=== PATIENT | male | born 1955 | race Caucasian/White ===

== ENCOUNTER 2021-08-29 11:20 | Emergency (ER) | payer MEDICARE ==
[~2021-08-29] VITALS: Ht 185.4 cm; Wt 109.1 kg
[2021-08-29 12:19] VITALS: BP 145/96
[2021-08-29] MEDS ORDERED: LIDOCAINE 5% TRANSDERMAL PATCH TD ONE (15:15)
[2021-08-29] MEDS ORDERED: DICLOFENAC SODIUM 1% 100 GM GEL [4GM] TP ONE (15:15)
[2021-08-29] MEDS ORDERED: ACETAMINOPHEN 500 MG TABLET PO ONE (15:15)
== END 2021-08-29 18:28 | disposition home or self-care (01) ==
LOC: EMS 11:20
DX: M16.12 Unilateral primary osteoarthritis, left hip (principal); M54.50 Low back pain, unspecified; M25.562 Pain in left knee; R60.0 Localized edema
CPT/HCPCS: 72100; 73503; 99284

== ENCOUNTER 2024-09-01 09:08 | Emergency (ER) | payer MEDICARE ==
[~2024-09-01] VITALS: Ht 167.6 cm; Wt 111.4 kg
[2024-09-01 09:11] VITALS: TEMP 98.6
[2024-09-01 09:23] LABS: COVID AG,FIA SOURCE NASAL SWAB
[2024-09-01 09:47] LABS: INFLUENZA TYPE A NEGATIVE FOR TYPE A (NEGATIVE); INFLUENZA TYPE B NEGATIVE FOR TYPE B (NEGATIVE); SARS-COV2 (COVID) ANTIGEN,FIA Negative (Negative)
[2024-09-01 13:10] LABS: BASOPHILS % (AUTO) 0.7 % (0.0-2.0); EOSINOPHILS % (AUTO) 2.2 % (1.0-6.0); HEMATOCRIT 41.4 % (41-53); LYMPHOCYTES # (AUTO) 1.2 K/uL (1.0-4.8); LYMPHOCYTES % (AUTO) 29.7 % (22.0-44.0); MEAN CORPUSCULAR HEMOGLOBIN 31.3 pg (26.0-34.0); MEAN CORPUSCULAR HGB CONC 33.8 G/dL (31.0-37.0); MEAN CORPUSCULAR VOLUME 93 fL (80-100); MONOCYTES # (AUTO) 0.7 K/uL (0.1-1.0); MONOCYTES % (AUTO) 16.1 % (2.0-9.0); NEUTROPHILS # (AUTO) 2.1 K/uL (1.8-7.7); NEUTROPHILS % (AUTO) 51.3 % (40.0-70.0); PLATELET COUNT (AUTO) 83 K/uL (150-450); RED BLOOD CELL COUNT(AUTO) 4.47 MIL/uL (4.50-5.90); RED CELL DISTRIBUTION WIDTH 14.4 % (11.5-14.5); WHITE BLOOD COUNT (AUTO) 4.1 K/uL (4.5-11.0)
[2024-09-01 13:24] LABS: ANION GAP 7 mmol/L (8-16); CALCIUM, TOTAL 8.3 mg/dL (8.8-10.5); CARBON DIOXIDE 28 mmol/L (22-29); CHLORIDE 100 mmol/L (98-107); CREATININE 0.94 mg/dL (0.60-1.30); GLOMERULAR FILTR. RATE CALC > 60 mL/min (>60); GLUCOSE,RANDOM 114 mg/dL (70-110); POTASSIUM 3.8 mmol/L (3.5-5.1); SODIUM SERUM 135 mmol/L (136-145); UREA NITROGEN, BLOOD 18 mg/dL (7-18)
[2024-09-01 13:25] LABS: RBC MORPHOLOGY COMMENT NORMAL RBC MORPH
[2024-09-01 13:33] LABS: B-TYPE NATRIURETIC PEPTIDE 52 pg/mL (0-100)
[2024-09-01] MEDS ORDERED: AZIT250T9 PO (14:30)
[2024-09-01 14:58] VITALS: PULSE 88; RESP 20; O2SAT 100
[2024-09-01] MEDS: ALBUTEROL SULFATE HFA 90 MCG/PUFF 8 GM INHALER IH ONE (14:58)
[2024-09-01 15:41] VITALS: BP 135/61; PULSE 88; RESP 20; O2SAT 100
== END 2024-09-01 15:48 | disposition home or self-care (01) ==
LOC: EMS 09:08
DX: J06.9 Acute upper respiratory infection, unspecified (principal); I10 Essential (primary) hypertension; Z20.822 Contact with and (suspected) exposure to COVID-19
CPT/HCPCS: 99284; 71045; 87426; 80048; 83880; 85025; 87804; 36415; 94640; J3535